=== PATIENT | male | born 1980 | race African-American/Black ===

== ENCOUNTER 2020-05-15 23:45 | Emergency (ER) | payer SELFPAY ==
[~2020-05-15] VITALS: Ht 190.5 cm; Wt 127.3 kg
--- NOTE | 2020-05-16 00:42 | PHYS DOC ---
General Adult EDM: Chief Complaint: ABDOMINAL PAIN HPI: HPI: Patient is a 39 year old male who presents with pain in the epigastrium radiating into the chest. Patient reports that this evening after eating some Bess barbecue chicken and some fries he began to have some pain in the epigastrium. He described it as a sharp pain that seemed to radiate up into his chest and would come and go and trains. This sharp pain however has resolved and he is left with a achiness in his epigastrium. He does complain of some nausea but denies any chest pain at this time as well as shortness of breath. He also also denies any fever, chills, sweats, cough, change in taste or smell. Patient denied any diarrhea or vomiting. Patient reports he has not had this pain in the past. Patient denies any allergies to medications. Review of Systems: Review of Systems: Constitutional: Denies fever or chills. [] Eyes: Denies change in visual acuity. [] HENT: Denies nasal congestion or sore throat. [] Respiratory: Denies cough or shortness of breath. [] Cardiovascular: See HPI [] GI: See HPI . [] : Denies dysuria. [] Musculoskeletal: Denies back pain or joint pain. [] Integument: Denies rash. [] Neurologic: Denies headache, focal weakness or sensory changes. [] Endocrine: Denies polyuria or polydipsia. [] Lymphatic: Denies swollen glands. [] Psychiatric: Denies depression or anxiety. [] Heart Score: Risk Factors: Risk Factors: DM, Current or recent (<one month) smoker, HTN, HLP, family history of CAD, obesity. Risk Scores: Score 0 - 3: 2.5% MACE over next 6 weeks - Discharge Home Score 4 - 6: 20.3% MACE over next 6 weeks - Admit for Clinical Observation Score 7 - 10: 72.7% MACE over next 6 weeks - Early Invasive Strategies Physical Exam: PE: Constitutional: Well developed, well nourished, no acute distress, non-toxic appearance. [] HENT: Normocephalic, atraumatic, bilateral external ears normal, oropharynx moist, no oral exudates, nose normal. [] Eyes: PERRLA, EOMI, conjunctiva normal, no discharge. [] Neck: Normal range of motion, no tenderness, supple, no stridor. [] Cardiovascular:Heart rate regular rhythm, no murmur [] Lungs & Thorax: Bilateral breath sounds clear to auscultation [] Abdomen: Soft, positive bowel sounds, tenderness in the epigastrium and right upper quadrant, questionable Rodriguez sign, voluntary guarding, mild distention. [] Skin: Warm, dry, no erythema, no rash. [] Back: No tenderness, no CVA tenderness. [] Extremities: No tenderness, no cyanosis, no clubbing, ROM intact, no edema. [] Neurologic: Alert and oriented X 3, normal motor function, normal sensory function, no focal deficits noted. [] Psychologic: Affect normal, judgement normal, mood normal. [] EKG: EKG: Heart rate 92 bpm, normal intervals, normal axis, sinus rhythm with some non specific ST-T wave changes. Abnormal ECG [] Radiology/Procedures: Radiology/Procedures: [] Course & Med Decision Making: Course & Med Decision Making Pertinent Labs and Imaging studies reviewed. (See chart for details) 0230-patient was seen and reevaluated. Patient has had almost complete resolution of his epigastric abdominal pain with the medications rendered here in the emergency department. At this time there is no evidence of an exigent medical or surgical problem. I discussed with him reasons to return, treatment plan and need for follow-up. [] Federicoon Disclaimer: Dragon Disclaimer: This electronic medical record was generated, in whole or in part, using a voice recognition dictation system. Departure Departure Impression: Primary Impression: Acute superficial gastritis without hemorrhage Additional Impressions: Epigastric abdominal pain Non-cardiac chest pain Disposition: HOME, SELF-CARE Condition: IMPROVED Referrals: UNKNOWN PCP NAME (PCP) Patient Instructions: Gastritis, Adult Scripts Omeprazole (OMEPRAZOLE) 40 Mg Capsule.dr 40 MG PO DAILY for 30 Days, #30 CAP Take 1/2-hour before the first meal the day Prov: RACHANA BELL MD 05/16/20 Justicifation of Admission Dx: Justifications for Admission: Justification of Admission Dx: N/A RACHANA BELL MD May 16, 2020 00:42
[2020-05-16] MEDS ORDERED: IV NORMAL SALINE 500ML BAG 500 ML IV ONE (00:45)
[2020-05-16] MEDS ORDERED: METOCLOPRAMIDE HCL 10 MG/2 ML VIAL. IVP ONE (00:45)
[2020-05-16] MEDS ORDERED: MAG HYDROX/ALUMINUM HYD/SIMETH 30 ML ORAL.SUSP PO ONE (00:45)
[2020-05-16] MEDS ORDERED: FAMOTIDINE 20 MG TABLET. PO ONE (00:45)
[2020-05-16 01:35] LABS: BASO % 1 % (0-3); EOS # 0.1 x10^3/uL (0.0-0.7); EOS % 1 % (0-3); HEMATOCRIT 37.9 % (39.0-53.0); HEMOGLOBIN 13.2 g/dL (13.0-17.5); LYMPH # 1.4 x10^3/uL (1.0-4.8); LYMPH % 17 % (24-48); MEAN CORPUSCULAR HEMOGLOBIN 31 pg (25-35); MEAN CORPUSCULAR HGB CONC 35 g/dL (31-37); MEAN CORPUSCULAR VOLUME 90 fL (79-100); MONO # 0.7 x10^3/uL (0.0-1.1); MONO % 9 % (0-9); NEUT % 72 % (31-73); PLATELET COUNT 241 x10^3/uL (140-400); RED BLOOD COUNT 4.24 x10^6/uL (4.30-5.70); RED CELL DISTRIBUTION WIDTH 13.7 % (11.5-14.5); WHITE BLOOD COUNT 8.3 x10^3/uL (4.0-11.0)
[2020-05-16 01:48] LABS: PROTHROMBIN TIME PATIENT 12.3 SEC (11.7-14.0)
--- NOTE | 2020-05-16 01:49 | RAD ---
INDICATION: Reason: Chest pain / Spl. Instructions: / History: COMPARISON: None. FINDINGS: 2 view of chest obtained. No focal airspace consolidation or pulmonary edema. Cardiac silhouette is unremarkable. Mild degenerative changes of the spine with osteophyte formation. IMPRESSION: * No focal airspace consolidation or edema. Electronically signed by: Brennon Laird MD (05/16/2020 1:45 AM) [id number]
[2020-05-16 01:54] LABS: CALCIUM 8.9 mg/dL (8.5-10.1); GFR 100.7
[2020-05-16 01:59] LABS: ALBUMIN 3.8 g/dL (3.4-5.0); ALBUMIN/GLOBULIN RATIO 1.2 (1.0-1.7); TOTAL BILIRUBIN 0.2 mg/dL (0.2-1.0); TOTAL PROTEIN 7.1 g/dL (6.4-8.2)
[2020-05-16] MEDS ORDERED: OMEP40CA45 PO (02:32)
[2020-05-16 02:35] VITALS: BP 143/72
== END 2020-05-16 02:40 | disposition home or self-care (01) ==
LOC: ER 23:45
DX: K29.00 Acute gastritis without bleeding (principal); R07.89 Other chest pain
CPT/HCPCS: 36415; 71046; 80053; 83690; 84484; 85025; 85610; 96361; 96374; 99284; G0480; J2765; J7040

== ENCOUNTER 2020-06-15 12:15 | Emergency (ER) | payer MEDICAID ==
[~2020-06-15] VITALS: Ht 193 cm; Wt 131.8 kg
[~2020-06-15 12:15] MED LIST: OMEP40CA45 PO
[2020-06-15] MEDS ORDERED: MORPHINE SULFATE 4 MG/ML VIAL. IV/SQ PRN (12:45)
[2020-06-15] MEDS ORDERED: NITROGLYCERIN SUBLINGUAL 0.4 MG BOTTLE OF 25. SL PRN (12:45)
[2020-06-15] MEDS ORDERED: LIDO:MAALOX 1:1 20 ML SINGLE DOSE. SWSW ONE (12:45)
--- NOTE | 2020-06-15 12:49 | PHYS DOC ---
Past Medical History Past Medical History: No Pertinent History Past Surgical History: Appendectomy Smoking Status: Never Smoker Alcohol Use: None General Adult EDM: Chief Complaint: CHEST PAIN HPI: HPI: Patient is a 39 year old male who presents with a sharp 8/10 non radiating chest pain that begun 2 hours ago while sitting. Patient denies anything exacerbating or relieving the pain. He states he took Aleve with some relief to his pain. Denies any family history of cardiac events including heart attack before the age of 50. Review of Systems: Review of Systems: Constitutional: Denies fever or chills. [] Eyes: Denies change in visual acuity. [] HENT: Denies nasal congestion or sore throat. [] Respiratory: Denies cough or shortness of breath. [] Cardiovascular: reports chest pain GI: Denies abdominal pain, nausea, vomiting, bloody stools or diarrhea. [] : Denies dysuria. [] Musculoskeletal: Denies back pain or joint pain. [] Integument: Denies rash. [] Neurologic: Denies headache, focal weakness or sensory changes. [] Endocrine: Denies polyuria or polydipsia. [] Lymphatic: Denies swollen glands. [] Psychiatric: Denies depression or anxiety. [] Heart Score: HEART Score for Chest Pain: HEART Score for Chest Pain Response (Comments) Value History Slighlty/Non-Suspicious 0 ECG Normal 0 Age < 45 0 Risk Factors No Risk Factors 0 Troponin < Normal Limit 0 Total 0 Risk Factors: Risk Factors: DM, Current or recent (<one month) smoker, HTN, HLP, family history of CAD, obesity. Risk Scores: Score 0 - 3: 2.5% MACE over next 6 weeks - Discharge Home Score 4 - 6: 20.3% MACE over next 6 weeks - Admit for Clinical Observation Score 7 - 10: 72.7% MACE over next 6 weeks - Early Invasive Strategies Allergies: Allergies: Allergies Coded Allergies Type Severity Reaction Last Updated Verified No Known Drug Allergies 05/16/20 No Physical Exam: PE: Constitutional: Overweight patient, no acute distress, non-toxic appearance. [] HENT: Normocephalic, atraumatic, bilateral external ears normal, oropharynx moist, no oral exudates, nose normal. [] Eyes: PERRLA, EOMI, conjunctiva normal, no discharge. [] Neck: Normal range of motion, no tenderness, supple, no stridor. [] Cardiovascular:Heart rate regular rhythm, no murmur [] Lungs & Thorax: Bilateral breath sounds clear to auscultation [] Abdomen: Bowel sounds normal, soft, no tenderness, no masses, no pulsatile masses. [] Skin: Warm, dry, no erythema, no rash. [] Back: No tenderness, no CVA tenderness. [] Extremities: No tenderness, no cyanosis, no clubbing, ROM intact, no edema. [] Neurologic: Alert and oriented X 3, normal motor function, normal sensory function, no focal deficits noted. [] Psychologic: Affect normal, judgement normal, mood normal. [] EKG: EKG: [] Radiology/Procedures: Radiology/Procedures: []PROCEDURE: PORTABLE CHEST 1V PORTABLE CHEST 1V History: Reason: chest pain / Spl. Instructions: / History: Comparison: May 16, 2020 Findings: Low lung volumes with mild bibasilar atelectasis. No pleural effusion. No pneumothorax. Portal technique accentuates cardiac size. Impression: 1. Low lung volumes with mild bibasilar atelectasis. Electronically signed by: Claudine Lindsey DO (06/15/2020 1:12 PM) [facility] DICTATED and SIGNED BY: CLAUDINE LINDSEY DO DATE: 06/15/201311 Course & Med Decision Making: Course & Med Decision Making Pertinent Labs and Imaging studies reviewed. (See chart for details) This is a 39-year-old male patient presenting to the ED today complaining of chest pain that began 2 hours ago. Patient is overweight other than that no previous medical history. EKG, chest x-ray, troponin-negative for any acute findings. CBC, CMP are normal. D-dimer is normal. Heart score 0 Patient has a history of gastritis. Was given GI cocktail in the ED with good relief of his symptoms. He is requesting to be discharged. He was given airframe technical officer for follow-up. Also encouraged to see a PCP. Provided return precautions and discharged in stable condition. Dragon Disclaimer: Dragon Disclaimer: This electronic medical record was generated, in whole or in part, using a voice recognition dictation system. Departure Departure Impression: Primary Impression: Non-cardiac chest pain Disposition: HOME, SELF-CARE Condition: STABLE Referrals: UNKNOWN PCP NAME (PCP) follow up in one week VADIM BRAVO MD Patient Instructions: Chest Pain (Nonspecific)-Brief Additional Instructions: You were evaluated in the emergency room for chest pain, your cardiac work-up is negative. Follow-up with your primary care doctor as well as the provided airframe technical officer in the next 7 days. Come back to the ED at any point symptoms worsen. Justicifation of Admission Dx: Justifications for Admission: Justification of Admission Dx: N/A XOCHITL ESQUEDA FOOTBALL COACH Jun 15, 2020 12:48
[2020-06-15 13:02] LABS: BILIRUBIN,URINE NEGATIVE (NEG); CLARITY,URINE CLEAR; COLOR,URINE YELLOW; NITRITE,URINE NEGATIVE (NEG); PH,URINE 5.5 (<5.0-8.0); PROTEIN,URINE NEGATIVE (NEG-TRACE); UROBILINOGEN,URINE 0.2 mg/dL (0.2 mg/dL)
[2020-06-15 13:09] LABS: BARBITURATES NEG (NEG); BENZODIAZEPINES NEG (NEG); CANNABINOIDS POS (NEG); COCAINE NEG (NEG); METHADONE NEG (NEG); OPIATES NEG (NEG); PHENCYCLIDINE NEG (NEG)
[2020-06-15 13:10] LABS: BASO % 0 % (0-3); EOS % 1 % (0-3); HEMATOCRIT 39.6 % (39.0-53.0); HEMOGLOBIN 13.6 g/dL (13.0-17.5); LYMPH # 1.3 x10^3/uL (1.0-4.8); LYMPH % 27 % (24-48); MEAN CORPUSCULAR HEMOGLOBIN 31 pg (25-35); MEAN CORPUSCULAR HGB CONC 34 g/dL (31-37); MEAN CORPUSCULAR VOLUME 89 fL (79-100); MONO # 0.4 x10^3/uL (0.0-1.1); MONO % 8 % (0-9); NEUT # 3.1 x10^3/uL (1.8-7.7); NEUT % 64 % (31-73); PLATELET COUNT 236 x10^3/uL (140-400); RED BLOOD COUNT 4.43 x10^6/uL (4.30-5.70); RED CELL DISTRIBUTION WIDTH 13.8 % (11.5-14.5); WHITE BLOOD COUNT 4.8 x10^3/uL (4.0-11.0)
[2020-06-15 13:12] LABS: AMPHETAMINE/METHAMPHETAMINE NEG (NEG)
--- NOTE | 2020-06-15 13:15 | RAD ---
PORTABLE CHEST 1V History: Reason: chest pain / Spl. Instructions: / History: Comparison: May 16, 2020 Findings: Low lung volumes with mild bibasilar atelectasis. No pleural effusion. No pneumothorax. Portal technique accentuates cardiac size. Impression: 1. Low lung volumes with mild bibasilar atelectasis. Electronically signed by: Praveen Ulloa DO (06/15/2020 1:12 PM) [facility]
[2020-06-15 13:31] LABS: BACTERIA,URINE FEW /HPF (0-FEW); RBC,URINE OCC /HPF (0-2); SQUAMOUS EPITHELIAL CELL,UR OCC /LPF; WBC,URINE OCC /HPF (0-4)
[2020-06-15 13:32] LABS: CALCIUM 8.8 mg/dL (8.5-10.1); CREATININE 0.9 mg/dL (0.7-1.3); D-DIMER 0.33 ug/mlFEU (0.00-0.50); GFR 113.7; POTASSIUM 3.7 mmol/L (3.5-5.1)
[2020-06-15 13:38] LABS: ALBUMIN 3.5 g/dL (3.4-5.0); ALBUMIN/GLOBULIN RATIO 0.9 (1.0-1.7); MAGNESIUM 1.7 mg/dL (1.8-2.4); TOTAL BILIRUBIN 0.4 mg/dL (0.2-1.0); TOTAL PROTEIN 7.5 g/dL (6.4-8.2)
[2020-06-15 14:10] VITALS: BP 124/77
--- NOTE | 2020-06-16 15:38 | EKG ---
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
== END 2020-06-15 14:31 | disposition home or self-care (01) ==
LOC: ER 12:15
DX: R07.89 Other chest pain (principal); Z90.89 Acquired absence of other organs
CPT/HCPCS: 36415; 71045; 80053; 80307; 81001; 83690; 83735; 83880; 84484; 85025; 85379; 85610; 93005; 99285; G0480

== ENCOUNTER 2020-09-04 15:19 | Emergency (ER) | payer MEDICAID ==
[~2020-09-04] VITALS: Ht 190.5 cm; Wt 125.0 kg
--- NOTE | 2020-09-04 16:06 | RAD ---
CHEST PA LATERAL History: Reason: pain / Spl. Instructions: / History: Comparison: June 15, 2020 Findings: No consolidation or pleural effusion. Normal heart size. No pneumothorax. Impression: 1. No acute cardiopulmonary process. Electronically signed by: Praveen Ulloa DO (09/04/2020 4:04 PM) [facility]
[2020-09-04 16:12] LABS: BASO % 0 % (0-3); EOS % 1 % (0-3); HEMATOCRIT 38.6 % (39.0-53.0); HEMOGLOBIN 13.2 g/dL (13.0-17.5); LYMPH # 1.6 x10^3/uL (1.0-4.8); LYMPH % 26 % (24-48); MEAN CORPUSCULAR HEMOGLOBIN 30 pg (25-35); MEAN CORPUSCULAR HGB CONC 34 g/dL (31-37); MEAN CORPUSCULAR VOLUME 89 fL (79-100); MONO # 0.4 x10^3/uL (0.0-1.1); MONO % 7 % (0-9); NEUT # 4.2 x10^3/uL (1.8-7.7); NEUT % 67 % (31-73); PLATELET COUNT 248 x10^3/uL (140-400); RED BLOOD COUNT 4.36 x10^6/uL (4.30-5.70); RED CELL DISTRIBUTION WIDTH 13.5 % (11.5-14.5); WHITE BLOOD COUNT 6.4 x10^3/uL (4.0-11.0)
--- NOTE | 2020-09-04 16:15 | PHYS DOC ---
Past Medical History Past Medical History: No Pertinent History Past Surgical History: Appendectomy Smoking Status: Never Smoker Alcohol Use: None General Adult EDM: Chief Complaint: CHEST WALL PAIN HPI: HPI: Patient is a 39 year old male who presents with lower left back pain for the last 2 weeks that is sharp and shooting and goes into his left gluteus he goes in from a sitting to standing position. 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 He states today that the pain continued so hard that it made him have a sharp pain in his chest that quickly resolved. 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 Rates his pain a 7 out of 10 when he goes from sitting to standing or if he lays on the left side. Denies past medical history besides appendectomy. Review of Systems: Review of Systems: Constitutional: Denies fever or chills. [] Eyes: Denies change in visual acuity. [] HENT: Denies nasal congestion or sore throat. [] Respiratory: cough or shortness of breath. [] Cardiovascular: + chest pain or denies edema. [] GI: Denies abdominal pain, nausea, vomiting, bloody stools or diarrhea. [] : Denies dysuria. [] Musculoskeletal: +Left lower back pain or joint pain. [] Integument: Denies rash. [] Neurologic: Denies headache, focal weakness or sensory changes. [] Endocrine: Denies polyuria or polydipsia. [] Lymphatic: Denies swollen glands. [] Psychiatric: Denies depression or anxiety. [] Denies Heart Score: HEART Score for Chest Pain: HEART Score for Chest Pain Response (Comments) Value History Slighlty/Non-Suspicious 0 ECG Normal 0 Age < 45 0 Risk Factors 1 or 2 Risk Factors 1 Troponin < Normal Limit 0 Total 1 Risk Factors: Risk Factors: DM, Current or recent (<one month) smoker, HTN, HLP, family history of CAD, obesity. Risk Scores: Score 0 - 3: 2.5% MACE over next 6 weeks - Discharge Home Score 4 - 6: 20.3% MACE over next 6 weeks - Admit for Clinical Observation Score 7 - 10: 72.7% MACE over next 6 weeks - Early Invasive Strategies Allergies: Allergies: Allergies Coded Allergies Type Severity Reaction Last Updated Verified No Known Drug Allergies 05/16/20 No Physical Exam: PE: Constitutional: Well developed, well nourished, no acute distress, non-toxic appearance. [] HENT: Normocephalic, atraumatic, bilateral external ears normal, oropharynx moist, no oral exudates, nose normal. [] Eyes: PERRLA, EOMI, conjunctiva normal, no discharge. [] Neck: Normal range of motion, no tenderness, supple, no stridor. [] Cardiovascular:Heart rate regular rhythm, no murmur [] Lungs & Thorax: Bilateral breath sounds clear to auscultation [] Abdomen: Bowel sounds normal, soft, no tenderness, no masses, no pulsatile masses. [] Skin: Warm, dry, no erythema, no rash. [] Back: No tenderness, no CVA tenderness. [] Extremities: No tenderness, no cyanosis, no clubbing, ROM intact, no edema. [] Neurologic: Alert and oriented X 3, normal motor function, normal sensory function, no focal deficits noted. [] Psychologic: Affect normal, judgement normal, mood normal. Normal physical exam [] Current Patient Data: Labs: Laboratory Tests Test 09/04/20 16:00 White Blood Count 6.4 x10^3/uL (4.0-11.0) Red Blood Count 4.36 x10^6/uL (4.30-5.70) Hemoglobin 13.2 g/dL (13.0-17.5) Hematocrit 38.6 % (39.0-53.0) L Mean Corpuscular Volume 89 fL (79-100) Mean Corpuscular Hemoglobin 30 pg (25-35) Mean Corpuscular Hemoglobin Concent 34 g/dL (31-37) Red Cell Distribution Width 13.5 % (11.5-14.5) Platelet Count 248 x10^3/uL (140-400) Neutrophils (%) (Auto) 67 % (31-73) Lymphocytes (%) (Auto) 26 % (24-48) Monocytes (%) (Auto) 7 % (0-9) Eosinophils (%) (Auto) 1 % (0-3) Basophils (%) (Auto) 0 % (0-3) Neutrophils # (Auto) 4.2 x10^3/uL (1.8-7.7) Lymphocytes # (Auto) 1.6 x10^3/uL (1.0-4.8) Monocytes # (Auto) 0.4 x10^3/uL (0.0-1.1) Eosinophils # (Auto) 0.0 x10^3/uL (0.0-0.7) Basophils # (Auto) 0.0 x10^3/uL (0.0-0.2) Laboratory Tests 09/04/20 16:00 Vital Signs: Vital Signs Date Time Temp Pulse Resp B/P (MAP) Pulse Ox O2 Delivery O2 Flow Rate FiO2 09/04/20 15:38 97.4 82 18 138/63 (88) 98 Room Air 97.4 EKG: EK and read by Dr. Campos as sinus rhythm with a ventricular premature complex and no STEMI. [] Radiology/Procedures: Radiology/Procedures: [] Impression: [facility] [address] [place] [address] IMAGING REPORT Signed PATIENT: SANTOSH MANN ACCOUNT: [id number] : 1980 LOCATION: ER AGE: 39 SEX: M EXAM STATUS: PRE ER ORD. PHYSICIAN: HOMA CHAKRABORTY APRN REASON: pain PROCEDURE: CHEST PA & LATERAL CHEST PA LATERAL History: Reason: pain / Spl. Instructions: / History: Comparison: June 15, 2020 Findings: No consolidation or pleural effusion. Normal heart size. No pneumothorax. Impression: 1. No acute cardiopulmonary process. Electronically signed by: Claudine Ulloa DO (09/04/2020 4:04 PM) [facility] DICTATED and SIGNED BY: CLAUDINE ULLOA DO DATE: 09/04/20 [id number] 0 Course & Med Decision Making: Course & Med Decision Making Pertinent Labs and Imaging studies reviewed. (See chart for details) See HPI. Ambulatory with a steady gait. Speaks in full complete sentences. Skin pink warm and dry. Abdomen soft and nontender. No extremity edema. Patient denies chest pain, shortness of breath, dizziness, headache, vision changes, nausea, vomiting, diarrhea, urinary symptoms, back pain, loss of bowel bladder, numbness or tingling, focal weakness. No saddle paresthesias. No t enderness with palpation to left back. There is no focal bony spinal tenderness. Lungs are clear to auscultation all lobes. Vital signs within normal limits. He is afebrile. Patient denies any current chest pain. Blood work unremarkable. Heart score very low risk. Chest x-ray shows no acute findings. Patient is given Solu-Medrol, Toradol, orphenadrine in the ED. He is discharged home. He follow-up with primary care provider. [] Dragon Disclaimer: Dragon Disclaimer: This electronic medical record was generated, in whole or in part, using a voice recognition dictation system. Departure Departure Impression: Primary Impression: Non-cardiac chest pain Additional Impressions: Sciatica Qualified Codes: M54.32 - Sciatica, left side Back pain Qualified Codes: M54.42 - Lumbago with sciatica, left side Disposition: 01 DC HOME SELF CARE/HOMELESS Condition: STABLE Referrals: NO PCP (PCP) Patient Instructions: Low Back Strain with Rehab-SportsMed, Sciatica with Rehab-SportsMed Additional Instructions: Follow-up with your primary care provider. If you begin having chest chest pain that is not relieved. Return to the emergency room. Scripts Ibuprofen (IBUPROFEN) 600 Mg Tablet 600 MG PO PRN Q6HRS PRN for INFLAMMATION, #20 TAB Prov: HOMA CHAKRABORTY APRN 09/04/20 Methylprednisolone (MEDROL) 4 Mg Tab.ds.pk 1 PKG PO UD, #1 PKG Prov: HOMA CHAKRABORTY APRN 09/04/20 HOMA CHAKRABORTY APRN Sep 04, 2020 16:15
--- NOTE | 2020-09-04 16:23 | EKG ---
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
[2020-09-04 16:31] LABS: BILIRUBIN,URINE NEGATIVE (NEG); CLARITY,URINE CLEAR; COLOR,URINE YELLOW; NITRITE,URINE NEGATIVE (NEG); PROTEIN,URINE NEGATIVE (NEG-TRACE); UROBILINOGEN,URINE 0.2 mg/dL (0.2 mg/dL)
[2020-09-04 16:38] LABS: CALCIUM 8.5 mg/dL (8.5-10.1); GFR 100.7; POTASSIUM 3.6 mmol/L (3.5-5.1)
[2020-09-04 16:38] LABS: BACTERIA,URINE 0 /HPF (0-FEW); RBC,URINE 0 /HPF (0-2); WBC,URINE 0 /HPF (0-4)
[2020-09-04 16:44] LABS: ALBUMIN 3.6 g/dL (3.4-5.0); ALBUMIN/GLOBULIN RATIO 0.9 (1.0-1.7); TOTAL BILIRUBIN 0.2 mg/dL (0.2-1.0); TOTAL PROTEIN 7.5 g/dL (6.4-8.2)
[2020-09-04] MEDS ORDERED: IBUP-1007 PO (16:49)
[2020-09-04] MEDS ORDERED: METH4TAB2 PO (16:49)
[2020-09-04 16:52] LABS: BARBITURATES NEG (NEG); BENZODIAZEPINES NEG (NEG); CANNABINOIDS POS (NEG); COCAINE NEG (NEG); METHADONE NEG (NEG); OPIATES NEG (NEG); PHENCYCLIDINE NEG (NEG)
[2020-09-04 16:55] LABS: AMPHETAMINE/METHAMPHETAMINE NEG (NEG)
[2020-09-04] MEDS ORDERED: KETOROLAC 30 MG/ML VIAL. IVP ONE (17:00)
[2020-09-04] MEDS ORDERED: ORPHENADRINE CITRATE 60 MG/2 ML VIAL. IM ONE (17:00)
[2020-09-04] MEDS ORDERED: methylPREDNISolone SOD SUCC PF 125 MG/2 ML VIAL. IV ONE (17:00)
[2020-09-04 17:06] VITALS: BP 122/62
== END 2020-09-04 17:08 | disposition home or self-care (01) ==
LOC: ER 15:19
DX: R07.89 Other chest pain (principal); M54.42 Lumbago with sciatica, left side; Z90.89 Acquired absence of other organs
CPT/HCPCS: 36415; 71046; 80053; 80307; 81001; 83690; 83880; 84484; 85025; 93005; 96374; 99285; J1885

== ENCOUNTER 2020-10-17 22:27 | Emergency (ER) | payer MEDICAID ==
[~2020-10-17] VITALS: Ht 193 cm; Wt 130.0 kg
[~2020-10-17 22:27] MED LIST changes: +IBUP-1007 PO; +METH4TAB2 PO; -OMEP40CA45 PO; +OMEP40CA7 PO
[2020-10-17] MEDS: KETOROLAC 30 MG/ML VIAL. IVP ONE ×2 (23:00→23:06)
[2020-10-17 23:21] VITALS: BP 119/66
[2020-10-17 23:23] LABS: BASO % 0 % (0-3); EOS # 0.1 x10^3/uL (0.0-0.7); EOS % 1 % (0-3); HEMATOCRIT 39.6 % (39.0-53.0); HEMOGLOBIN 13.3 g/dL (13.0-17.5); LYMPH # 2.1 x10^3/uL (1.0-4.8); LYMPH % 29 % (24-48); MEAN CORPUSCULAR HEMOGLOBIN 30 pg (25-35); MEAN CORPUSCULAR HGB CONC 34 g/dL (31-37); MEAN CORPUSCULAR VOLUME 89 fL (79-100); MONO # 0.5 x10^3/uL (0.0-1.1); MONO % 7 % (0-9); NEUT # 4.6 x10^3/uL (1.8-7.7); NEUT % 63 % (31-73); PLATELET COUNT 268 x10^3/uL (140-400); RED BLOOD COUNT 4.48 x10^6/uL (4.30-5.70); RED CELL DISTRIBUTION WIDTH 13.7 % (11.5-14.5); WHITE BLOOD COUNT 7.3 x10^3/uL (4.0-11.0)
--- NOTE | 2020-10-17 23:28 | ED.ADGEN ---
Past Medical History Past Medical History: No Pertinent History Past Surgical History: Appendectomy Smoking Status: Never Smoker Alcohol Use: None General Adult EDM: Chief Complaint: CHEST PAIN HPI: HPI: Patient is a 40-year-old previously healthy male who presents to the emergency room complaining of onset of substernal chest pain that started suddenly while he was watching the football game. He does not believe he has had anything like this previously. He states it feels like a dull pain but initially was 10 out of 10. He states that it has gotten better and is now a 7 out of 10. He denies any cough, shortness of breath, URI symptoms, abdominal pain, nausea, vomiting, fever, chills, sweats. Review of Systems: Review of Systems: Complete ROS is negative unless otherwise documented in HPI Current Medications: Current Medications Medications (Trade) Dose Ordered Sig/Dena Start Time Stop Time Status Last Admin Dose Admin Ketorolac Tromethamine (Toradol 30mg Vial) 30 mg 1X ONCE 10/17/20 23:00 10/17/20 23:01 DC Allergies: Allergies: Allergies Coded Allergies Type Severity Reaction Last Updated Verified No Known Drug Allergies 05/16/20 No Physical Exam: PE: General: Awake, alert, NAD. Well Nourished, well hydrated. Cooperative HEENT: Atraumatic, EOMI, PERRL, airway patent, moist oral mucosa Neck: Supple, trachea midline Respiratory: CTA bilaterally, normal effort, no wheezing/crackles CV: RRR, no murmur, cap refill <2 GI: Soft, nondistended, nontender, no masses MSK: No obvious deformities Skin: Warm, dry, intact Neuro: A&O x3, speech NL, sensory and motor grossly intact, no focal deficits Psych: Normal affect, normal mood, not suicidal or homicidal Current Patient Data: Labs: Laboratory Tests Test 10/17/20 23:17 White Blood Count 7.3 x10^3/uL (4.0-11.0) Red Blood Count 4.48 x10^6/uL (4.30-5.70) Hemoglobin 13.3 g/dL (13.0-17.5) Hematocrit 39.6 % (39.0-53.0) Mean Corpuscular Volume 89 fL (79-100) Mean Corpuscular Hemoglobin 30 pg (25-35) Mean Corpuscular Hemoglobin Concent 34 g/dL (31-37) Red Cell Distribution Width 13.7 % (11.5-14.5) Platelet Count 268 x10^3/uL (140-400) Neutrophils (%) (Auto) 63 % (31-73) Lymphocytes (%) (Auto) 29 % (24-48) Monocytes (%) (Auto) 7 % (0-9) Eosinophils (%) (Auto) 1 % (0-3) Basophils (%) (Auto) 0 % (0-3) Neutrophils # (Auto) 4.6 x10^3/uL (1.8-7.7) Lymphocytes # (Auto) 2.1 x10^3/uL (1.0-4.8) Monocytes # (Auto) 0.5 x10^3/uL (0.0-1.1) Eosinophils # (Auto) 0.1 x10^3/uL (0.0-0.7) Basophils # (Auto) 0.0 x10^3/uL (0.0-0.2) Sodium Level 138 mmol/L (136-145) Potassium Level 3.4 mmol/L (3.5-5.1) L Chloride Level 104 mmol/L (98-107) Carbon Dioxide Level 29 mmol/L (21-32) Anion Gap 5 (6-14) L Blood Urea Nitrogen 8 mg/dL (8-26) Creatinine 1.0 mg/dL (0.7-1.3) Estimated GFR (Cockcroft-Gault) 100.1 Glucose Level 133 mg/dL (70-99) H Calcium Level 9.1 mg/dL (8.5-10.1) Troponin I Quantitative < 0.017 ng/mL (0.000-0.055) Laboratory Tests 10/17/20 23:17 Laboratory Tests 10/17/20 23:17 Vital Signs: Vital Signs Date Time Temp Pulse Resp B/P (MAP) Pulse Ox O2 Delivery O2 Flow Rate FiO2 10/17/20 23:21 97.2 103 18 119/66 (83) 98 Room Air 97.2 EKG: EKG: [] Heart Score: Risk Factors: Risk Factors: DM, Current or recent (<one month) smoker, HTN, HLP, family history of CAD, obesity. Risk Scores: Score 0 - 3: 2.5% MACE over next 6 weeks - Discharge Home Score 4 - 6: 20.3% MACE over next 6 weeks - Admit for Clinical Observation Score 7 - 10: 72.7% MACE over next 6 weeks - Early Invasive Strategies Radiology/Procedures: Radiology/Procedures: [] Course & Med Decision Making: Course & Med Decision Making Pertinent Labs and Imaging studies reviewed. (See chart for details) Patient is a 40-year-old male who presents to the emergency room complaining of onset of chest pain that is slowly getting better. He does not have any medical problems. He does not have any associated symptoms. Cardiac evaluation was done including EKG, CBC, BMP, chest x-ray. Differential diagnosis includes ACS, esophageal spasm, costochondritis, pneumonia, muscle strain. Work-up is unremarkable. I did discuss with the patient that he needs a delta troponin, however he states that he needs to go home. He no longer has chest pain. I have discussed with him that he should return if his chest pain returns. Riki ellis's test results and vitals while in the ED were fully reviewed and discussed with the patient. Patient is stable and at this time does not need admission to the hospital. We have discussed strict return precautions and the importance of following up with their Primary Care Physician. Patient stated understanding and was given an opportunity to ask any questions. Patient is in agreement with plan. Diomedes Disclaimer: Diomedes Disclaimer: This electronic medical record was generated, in whole or in part, using a voice recognition dictation system. Departure Departure Impression: Primary Impression: Non-cardiac chest pain Disposition: 01 DC HOME SELF CARE/HOMELESS Condition: STABLE Referrals: NO PCP (PCP) Patient Instructions: Chest Pain (Nonspecific) MILY HARTMAN MD Oct 17, 2020 23:28
[2020-10-17 23:33] LABS: CALCIUM 9.1 mg/dL (8.5-10.1); GFR 100.1; POTASSIUM 3.4 mmol/L (3.5-5.1)
--- NOTE | 2020-10-17 23:50 | RAD ---
Chest, PA and Lateral: Technique: PA and lateral views of the chest were obtained. History: Chest pain. Comparison: 09/04/2020. Findings: The heart and pulmonary vasculature appear within normal limits. The lungs are clear. The pleural ma rgins are clear. Impression: No acute chest process is seen. Electronically signed by: David Jo MD (10/17/2020 11:41 PM) [id number]
--- NOTE | 2020-10-18 11:50 | EKG ---
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
== END 2020-10-18 01:05 | disposition home or self-care (01) ==
LOC: ER 22:27
DX: R07.2 Precordial pain (principal)
CPT/HCPCS: 36415; 71046; 80048; 84484; 85025; 93005; J1885; 99285-25